=== PATIENT | female | born 1990 | race Caucasian/White ===

== ENCOUNTER → 2016-06-20 | Outpatient (CLI) | payer BC ==
[~2016-06-20] MED LIST: BCPILLS PO; FLUT0.0529 NAE; ZINC1CAP PO
== END | disposition home or self-care (01) ==
LOC: C.PAPS 14:57
PROVIDERS: ATTEND Obstetrics & Gynecology
DX: Z01.411 Encounter for gynecological examination (general) (routine) with abnormal findings (principal); R87.616 Satisfactory cervical smear but lacking transformation zone

== ENCOUNTER → 2016-06-20 | Outpatient (CLI) | payer BC ==
[2016-06-22 02:56] LABS: CHLAMYDIA TRACH RNA*** NOT DETECTED (NOT DETECTED); GC (NEIS GONORRHOEAE)RNA** NOT DETECTED (NOT DETECTED)
== END | disposition home or self-care (01) ==
LOC: C.LAB1850 10:40
PROVIDERS: ATTEND Obstetrics & Gynecology
DX: Z11.3 Encounter for screening for infections with a predominantly sexual mode of transmission (principal)

== ENCOUNTER → 2016-06-25 | Outpatient (CLI) | payer BC ==
--- NOTE | 2016-06-25 15:21 | MAMMOGRAPHY REPORT ---
ULTRASOUND OF BOTH BREASTS: 06/25/2016 CLINICAL HISTORY: 25-year-old woman with a history of hidradenitis suppirativa presents with a raise d visible and palpable 1 cm lump in the 3:00 left breast. The patient reports no erythema or draina ge from this mass. COMPARISON: No prior exams were available for comparison. FINDINGS: Real-time high resolution sonographic evaluation was performed in the area of palpable and visible lump in the 3:00 left breast, 8 cm from the nipple. There is an intradermal ovoid parallel circumscribed hypoechoic mass with posterior acoustic enhancement, measuring 9.4 x 2.6 x 11.1 mm. Although no punctum is seen eccentric to the skin surface, this is most compatible with an epidermal inclusion cyst given the appearance on visual inspection and on ultrasound. IMPRESSION: ACR BI-RADS CATEGORY 2: BENIGN There is no sonographic evidence of malignancy. The raised 1 cm visible and palpable mass in the 3: 00 left breast is most compatible with an epidermal inclusion cyst. These results and recommendations were discussed with the patient at the time of the exam. Sarah Aguirre M.D. ay/:06/25/2016 10:36:31 Continuous Vulcanizing Machine Operator: Dr. Sarah Aguirre, [facility] letter sent: Normal 1/2 BI-RADS Code: ACR BI-RADS Category 2: Benign
== END | disposition home or self-care (01) ==
LOC: C.MAMM 09:48
PROVIDERS: ATTEND Obstetrics & Gynecology
DX: N63 Unspecified lump in breast (principal)

== ENCOUNTER → 2016-12-13 | Outpatient (CLI) | payer BC ==
[2016-12-13 14:12] LABS: BLOOD UREA NITROGEN 12 mg/dl (7-18); BUN/CREATININE RATIO 16.4 (10-20); CARBON DIOXIDE 22 mmol/L (21-32); CHLORIDE 106 mmol/L (98-107); CREATININE 0.74 mg/dl (0.60-1.20); GLUCOSE 166 mg/dl (70-99); POTASSIUM 3.9 mmol/L (3.5-5.1); SODIUM 136 mmol/L (136-145)
[2016-12-13 14:23] LABS: PHOSPHORUS 3.1 mg/dl (2.5-4.9)
[2016-12-13 14:57] LABS: BASO % 0.3 %; BASO ABS # 0.04 K/uL (0-0.2); COMPLETE YES; HEMATOCRIT 44.7 % (37-47); IG% 1.7 %; LYMPH % 29.9 %; LYMPH ABS # 4.67 K/uL (1.2-3.4); MEAN CELL VOLUME 86.5 fL (80-100); MEAN CORPUSCULAR HEMOGLOBIN 29.2 pg (25-34); MEAN CORPUSCULAR HGB CONC 33.8 g/dl (32-36); MEAN PLATELET VOLUME 9.3 fL (7.4-10.4); MONO % 4.6 %; NEUT % 61.5 %; PLATELET COUNT 359 K/uL (130-400); RED BLOOD COUNT 5.17 M/uL (4.2-5.4)
== END | disposition home or self-care (01) ==
LOC: C.LABMFLN 10:56
PROVIDERS: ATTEND Family Medicine
DX: I10 Essential (primary) hypertension (principal)